=== PATIENT | female | born 1965 | race Caucasian/White ===

== ENCOUNTER → 2017-10-25 | Outpatient (CLI) | payer OTHER ==
--- NOTE | 2017-10-25 12:19 | Diagnostic Imaging Report ---
PROCEDURE:US GALLBLADDER COMPARISON:None. INDICATIONS:Abdominal Pain TECHNIQUE: Ferreira-scale and color Doppler transverse and longitudinal images of the right upper quadrant of the abdomen were obtained. FINDINGS: Liver: Measures 13.1 cm in right mid-clavicular line. Normal echogenicity. No masses. Main portal vein: Measures 1.0 cm with normal forward flow Gallbladder: No stones or wall thickening. Common Bile Duct: Measures 0.3 cm Sonographic Krause's sign: Negative Right kidney: Measures 11.1 x 5.3 x 4.7 cm. Normal echogenicity. No solid masses or hydronephrosis. Pancreas: Obscured by overlying gas Inferior vena cava: Limited evaluation Aorta: Limited evaluation Ascites: None in the right upper quadrant of the abdomen. CONCLUSION: Normal right upper quadrant ultrasound. Dakotah Mcfarlane D.O. Dictated by: Dakotah Mcfarlane D.O. on 10/25/2017 at 12:15 Electronically approved by: Dakotah Mcfarlane D.O. on 10/25/2017 at 12:21
--- NOTE | 2017-10-25 19:11 | Diagnostic Imaging Report ---
Hepatobiliary Scan with Gallbladder Ejection Fraction Clinical information: 52 F with persistent abdominal pain over several months Report: Following intravenous administration of 7 millicuries of Tc-99m mebrofenin, dynamic images of the abdomen in the anterior projection were obtained through 40 minutes. Sincalide (CCK analog) 1.9 micrograms was administered intravenously over 30 minutes with additional imaging for determination of gallbladder ejection fraction. Perfusion to the liver is normal. Extraction of tracer from the blood pool by the liver parenchyma is normal. Tracer is seen promptly within the biliary tract. The gallbladder begins to fill by 10 minutes post-injection of tracer and fills adequately. Tracer is seen in the small bowel during the sincalide infusion. The gallbladder ejection fraction with administration of sincalide is 77% (normal greater than 40%). Impression: 1. Filling of the gallbladder excludes the diagnosis of acute cystic duct obstruction/acute cholecystitis. 2. Normal gallbladder ejection fraction of 77% does not support the clinical diagnosis of chronic cholecystitis/gallbladder dyskinesia. Signed by: Dr. Saira Brown M.D. on 10/25/2017 7:08 PM
== END ==
LOC: US 10:19
PROVIDERS: ATTEND Internal Medicine Gastroenterology
DX: R10.84 Generalized abdominal pain (principal)
CPT/HCPCS: 76705; 78227; A9537